=== PATIENT | male | born 1955 ===

== ENCOUNTER 2024-02-12 06:57 | Day surgery (SDC) | payer OTHER ==
[2024-02-06 09:11] LABS: HEMATOCRIT 38.9 % (39.0-48.0); HEMOGLOBIN 13.5 g/dL (13-16.00); MEAN CELL VOLUME 91.7 fL (80.0-100.00); MEAN CORPUSCULAR HEMOGLOBIN 31.7 pg (27.00-32.0); MEAN CORPUSCULAR HGB CONC 34.6 g/dl (32.0-36.0); PLATELET COUNT 227 K/uL (150-450); RED BLOOD COUNT 4.25 M/uL (4.00-6.00); RED CELL DISTRIBUTION WIDTH 13.9 % (11.5-14.5)
[2024-02-06 09:16] LABS: PH,URINE 5.5 (5.0-8.0); URINE APPEARANCE Clear; URINE BILIRRUBIN Negative (NEGATIVE); URINE BLOOD Negative; URINE COLOR Yellow; URINE GLUCOSE Negative (NEGATIVE); URINE KETONE Negative (NEGATIVE); URINE LEUKOCYTE Negative; URINE NITRATE Negative; URINE PROTEIN Negative (NEGATIVE); URINE UROBILINOGEN 0.2 E.U./dl
[2024-02-06 09:18] LABS: URINE EPITHELIAL CELLS 0.7 uL (0.0-38.8); URINE RBC 1.3 uL (0.0-20.8); URINE WBC 0.3 uL (0.0-23.2)
[2024-02-06 09:48] LABS: INR 1.01; PARTIAL THROMBOPLASTIN TIME 27.5 SECONDS (22.0-34.0)
[2024-02-06 09:58] LABS: CALCIUM 9.2 mg/dL (8.5-10.1); CREATININE SERUM 0.97 mg/dL (0.70-1.30); GFR 77.43
[2024-02-06 10:02] LABS: POTASSIUM 4.3 mEq/L (3.5-5.1)
[~2024-02-12 06:57] MED LIST: NORVASC5 MG; PRILOSEC OTC20 MG; SYNTHROID150 MCG; VASOTEC10 MG; ZOCOR20 MG
[2024-02-12] MEDS ORDERED: TRAMADOL HCL50 MG PO (09:31)
[2024-02-12] MEDS ORDERED: KETO10TA2 PO (09:31)
[2024-02-12] MEDS ORDERED: TYLENOL ARTHRI650 MG PO (09:31)
[2024-02-12] MEDS ORDERED: MIRALAX17 GM PO (09:31)
[2024-02-12] MEDS ORDERED: CEFAZOLIN SODIUM 1,000 MG VIAL IV ONE (10:45)
[2024-02-12] MEDS ORDERED: BUPIVACAINE HCL 30 ML VIAL IJ ONE (10:45)
[2024-02-12] MEDS ORDERED: MORPHINE SULFATE 4 MG/ML VIAL IV ONE (13:00)
== END 2024-02-12 15:00 | disposition home or self-care (01) ==
LOC: CIR.AMB 06:57
PROVIDERS: ATTEND Surgery
DX: K40.20 Bilateral inguinal hernia, without obstruction or gangrene, not specified as recurrent (principal); K42.0 Umbilical hernia with obstruction, without gangrene
CPT/HCPCS: 49650; 49592; C1781